=== PATIENT | male | born 1995 | race Caucasian/White ===

== ENCOUNTER 2018-08-06 00:34 | Emergency (ER) | payer OTHER ==
[2018-08-06 00:49] VITALS: BP 131/90; PULSE 109; RESP 16; TEMP 98
--- NOTE | 2018-08-06 01:08 | ED ---
Psych HPI - General Chief Complaint: Psychiatric Symptoms Stated Complaint: EPS Eval Time Seen by Provider: 08/06/18 00:47 Source: patient, police, RN notes reviewed, old records reviewed Mode of arrival: ambulatory - History of Present Illness Initial Comments: This is a 23-year-old male the ER for EPS and psychiatric evaluation. Patient has positive alcohol abuse disorder. Patient is positive intoxicated currently. Patient is also depressed and wants to commit suicide MD Complaint: suicidal ideation, feels depressed -: unknown Associated Psychiatric Symptoms: depression, suicidal ideation History of same: Yes Quality: getting worse Worsens With: alcohol Context: recent alcohol abuse Associated Symptoms: denies other symptoms Treatments Prior to Arrival: placed on mental health hold If Self Harm: admits thoughts of self harm - Related Data Allergies Allergy/AdvReac Type Severity Reaction Status Date / Time No Known Allergies Allergy Verified 08/06/18 00:49 Review of Systems ROS Statement: Those systems with pertinent positive or pertinent negative responses have been documented in the HPI. ROS Other: All systems not noted in ROS Statement are negative. Past Medical History Past Medical History: No Reported History History of Any Multi-Drug Resistant Organisms: None Reported Past Surgical History: No Surgical Hx Reported Past Psychological History: No Psychological Hx Reported Smoking Status: Light tobacco smoker Past Alcohol Use History: Occasional Past Drug Use History: Marijuana General Exam Limitations: no limitations General appearance: appears intoxicated Head exam: Present: atraumatic, normocephalic, normal inspection Eye exam: Present: normal appearance, PERRL, EOMI. Absent: scleral icterus, conjunctival injection, periorbital swelling ENT exam: Present: normal exam, mucous membranes moist Neck exam: Present: normal inspection. Absent: tenderness, meningismus, lymphadenopathy Respiratory exam: Present: normal lung sounds bilaterally. Absent: respiratory distress, wheezes, rales, rhonchi, stridor Cardiovascular Exam: Present: regular rate, normal rhythm, normal heart sounds. Absent: systolic murmur, diastolic murmur, rubs, gallop, clicks GI/Abdominal exam: Present: soft, normal bowel sounds. Absent: distended, tenderness, guarding, rebound, rigid Extremities exam: Present: normal inspection, full ROM, normal capillary refill. Absent: tenderness, pedal edema, joint swelling, calf tenderness Back exam: Present: normal inspection Neurological exam: Present: alert, oriented X3, CN II-XII intact Psychiatric exam: Present: normal affect, normal mood Skin exam: Present: warm, dry, intact, normal color. Absent: rash Course Vital Signs 08/06/18 00:45 Temperature 98.0 F Pulse Rate 109 H Respiratory 16 Rate Blood Pressure 131/90 O2 Sat by Pulse 96 Oximetry Medical Decision Making - Medical Decision Making 23 male the ER for evaluation. Patient seen evaluated with psychiatry intake, now cyanosis, not deemed necessary for psychiatric treatment. Patient can be discharged home - Lab Data Lab Results 08/06/18 Range/Units 01:50 Urine Opiates Screen Not Detected (NotDetected) Ur Oxycodone Screen Not Detected (NotDetected) Urine Methadone Screen Not Detected (NotDetected) Ur Propoxyphene Screen Not Detected (NotDetected) Ur Barbiturates Screen Not Detected (NotDetected) U Tricyclic Antidepress Not Detected (NotDetected) Ur Phencyclidine Scrn Not Detected (NotDetected) Ur Amphetamines Screen Not Detected (NotDetected) U Methamphetamines Scrn Not Detected (NotDetected) U Benzodiazepines Scrn Not Detected (NotDetected) Urine Cocaine Screen Not Detected (NotDetected) U Marijuana (THC) Screen Detected H (NotDetected) Disposition Clinical Impression: Alcohol intoxication Disposition: HOME SELF-CARE Condition: Good Instructions (If sedation given, give patient instructions): Alcohol Intoxication (ED) Is patient prescribed a controlled substance at d/c from ED?: No Referrals: None,Stated [Primary Care Provider] - 1-2 days
[2018-08-06 02:11] LABS: Amphetamine Screen,Urine Not Detected (NotDetected); Barbiturate Screen,Urine Not Detected (NotDetected); Benzodiazepines Screen,Urine Not Detected (NotDetected); Cocaine Screen,Urine Not Detected (NotDetected); Methadone Screen, Urine Not Detected (NotDetected); Opiate Screen,Urine Not Detected (NotDetected); Oxycodone Screen, Urine Not Detected (NotDetected); Phencyclidine Screen,Urine Not Detected (NotDetected); Tricyclic Antidepressant,Urine Not Detected (NotDetected); Urn Cannabinoid Scrn Detected (NotDetected)
== END 2018-08-06 03:20 | disposition home or self-care (01) ==
LOC: EC 00:34
DX: F10.129 Alcohol abuse with intoxication, unspecified (principal); F32.9 Major depressive disorder, single episode, unspecified; R45.851 Suicidal ideations; F17.200 Nicotine dependence, unspecified, uncomplicated
CPT/HCPCS: 80306; 99284

== ENCOUNTER 2019-05-18 07:57 | Inpatient (IN) | payer BC, OTHER ==
--- NOTE | 2019-05-18 08:29 | ED ---
Psych HPI - General Chief Complaint: Psychiatric Symptoms Stated Complaint: Mental Health Time Seen by Provider: 05/18/19 08:12 Source: patient, RN notes reviewed Mode of arrival: ambulatory Limitations: no limitations - History of Present Illness Initial Comments: This a 24-year-old male presents emergency department for psychiatric evaluation. Patient states he's been having increasing depression intermittent suicidal thoughts. Patient states that he does see a therapist every Sunday. Patient states that they're not helping. He was on Lexapro started on February 17 states he discontinued it because he gained a lot of weight. Patient has no physical complaints does admit to marijuana use no other drug use denies alcohol abuse history. Patient offers no other complaints denies homicidal ideation. - Related Data Home Medications Medication Instructions Recorded Confirmed Escitalopram [Lexapro] 10 mg PO DAILY 05/18/19 05/18/19 Allergies Allergy/AdvReac Type Severity Reaction Status Date / Time No Known Allergies Allergy Verified 05/18/19 10:32 Review of Systems ROS Statement: Those systems with pertinent positive or pertinent negative responses have been documented in the HPI. ROS Other: All systems not noted in ROS Statement are negative. Past Medical History Past Medical History: No Reported History History of Any Multi-Drug Resistant Organisms: None Reported Past Surgical History: No Surgical Hx Reported Past Psychological History: No Psychological Hx Reported Smoking Status: Former smoker Past Alcohol Use History: Daily Past Drug Use History: Marijuana General Exam Limitations: no limitations General appearance: alert, in no apparent distress Head exam: Present: atraumatic, normocephalic, normal inspection Eye exam: Present: normal appearance, PERRL, EOMI. Absent: scleral icterus, conjunctival injection, periorbital swelling ENT exam: Present: normal exam, normal oropharynx, mucous membranes moist Neck exam: Present: normal inspection, full ROM. Absent: tenderness, meningismus, lymphadenopathy Respiratory exam: Present: normal lung sounds bilaterally. Absent: respiratory distress, wheezes, rales, rhonchi, stridor Cardiovascular Exam: Present: regular rate, normal rhythm, normal heart sounds. Absent: systolic murmur, diastolic murmur, rubs, gallop, clicks GI/Abdominal exam: Present: soft, normal bowel sounds. Absent: distended, te nderness, guarding, rebound, rigid Neurological exam: Present: alert, oriented X3 Psychiatric exam: Present: depressed Skin exam: Present: warm, dry, intact, normal color. Absent: rash Course Vital Signs 05/18/19 08:07 Temperature 97.8 F Pulse Rate 86 Respiratory 18 Rate Blood Pressure 119/64 O2 Sat by Pulse 99 Oximetry Medical Decision Making - Medical Decision Making Patient was evaluated by EPS case discussed with psychiatrist recommends inpatient treatment. - Lab Data Lab Results 05/18/19 Range/Units 08:20 Urine Opiates Screen Not Detected (NotDetected) Ur Oxycodone Screen Not Detected (NotDetected) Urine Methadone Screen Not Detected (NotDetected) Ur Propoxyphene Screen Not Detected (NotDetected) Ur Barbiturates Screen Not Detected (NotDetected) U Tricyclic Antidepress Not Detected (NotDetected) Ur Phencyclidine Scrn Not Detected (NotDetected) Ur Amphetamines Screen Not Detected (NotDetected) U Methamphetamines Scrn Not Detected (NotDetected) U Benzodiazepines Scrn Not Detected (NotDetected) Urine Cocaine Screen Not Detected (NotDetected) U Marijuana (THC) Screen Detected H (NotDetected) Disposition Clinical Impression: Depression, Suicidal ideation Disposition: TRANSFER TO PSYCH HOSP/UNIT Condition: Stable
[2019-05-18 08:49] LABS: Amphetamine Screen,Urine Not Detected (NotDetected); Barbiturate Screen,Urine Not Detected (NotDetected); Benzodiazepines Screen,Urine Not Detected (NotDetected); Cocaine Screen,Urine Not Detected (NotDetected); Methadone Screen, Urine Not Detected (NotDetected); Opiate Screen,Urine Not Detected (NotDetected); Oxycodone Screen, Urine Not Detected (NotDetected); Phencyclidine Screen,Urine Not Detected (NotDetected); Tricyclic Antidepressant,Urine Not Detected (NotDetected); Urn Cannabinoid Scrn Detected (NotDetected)
[2019-05-18] MEDS ORDERED: MAGNESIUM HYDROXIDE 2,400 MG/10 ML CUP PO PRN (10:34)
[2019-05-18] MEDS ORDERED: ACETAMINOPHEN TAB 325 MG TAB PO PRN (10:34)
[2019-05-18] MEDS ORDERED: MAG HYDROX/AL HYDROX/SIMETH 30 ML CUP PO PRN (10:34)
[2019-05-18] MEDS ORDERED: ZIPRASIDONE 20 MG VIAL IM PRN (10:34)
[2019-05-18] MEDS ORDERED: hydrOXYzine PAMOATE 25 MG CAP PO PRN (10:36)
--- NOTE | 2019-05-18 14:39 | P.HP ---
Psychiatric H&P - . H&P Date: 05/18/19 History & Physical: IDENTIFYING Data: Fracisco Marks is a 24-year-old single male who currently is homeless, working in construction, has psychiatric history of depression and PTSD, and reports not medical problems. The patient has been admitted to our inpatient psychiatric services after been transferred from [facility] ED. Patient was initially self-referred because of depression and SI. The patient has been admitted on voluntary basis to our service. CHIEF COMPLAINT: "Depression, and SI" HISTORY OF PRESENT ILLNESS: As per ED note: " This a 24-year-old male presents emergency department for psychiatric evaluation. Patient states he's been having increasing depression intermittent suicidal thoughts. Patient states that he does see a therapist every Sunday. Patient states that they're not helping. He was on Lexapro started on February 17 states he discontinued it because he gained a lot of weight. Patient has no physical complaints does admit to marijuana use no other drug use denies alcohol abuse history. Patient offers no other complaints denies homicidal ideation." Patient was evaluated today, he reports worsening of depression for past 6 months and for last week he has constant thoughts of killing himself. He was thinking about going to the beach and shot himself but he decided to come to the hospital. Patient reports is still has access to his guns when he leaves, but he refused to disclose where his guns "my guns are at [facility] and the person who has been keeping them safe". Patient reports history of depression and is started when he was teenager and at that time he started taking Zoloft. He reports previous episodes of depression but denies any history of suicidal attempts. Patient reports for the last 6 months has been feeling depressed with symptoms of depressed mood for most of the time, lack of motivation, very poor energy level, sleep and appetite disturbances that he had trouble sleeping and wakes up frequently and his appetite fluctuates from eating too much or not to eat. He reports times of feeling hopeless and suicidal ideation. He reports severe mood swings was times feeling very angry at himself that he could hit his head or punching armendariz because of his depression and not feeling any better. Patient denies any history of agustin including euphoric mood, lack need to sleep due to unusual increased activities, or irrational/impulsive behavior. But he reports symptoms of severe mood swings with outbursts of agitation and anger and usually his anger toward himself. Denies any history of psychosis including auditory/visual hallucinations, paranoid ideation, and no delusions could be elicited. Patient reports feeling severe anxiety for most of his life that he always worried was racing thoughts. He reports symptoms of sweating, tremors, and heart racing related to his anxiety. Reports history of panic attacks but denies any recent ones. Even he reported being diagnosed with PTSD according to his therapist, but he denies symptoms of flashbacks, or nightmares. He reports his trauma related to being abandoned by his mother at very young age. Patient was prescribed Lexapro recently by his PCP and he continued to take it for more than 2 month but he didn't feel any help and he reports gaining weight as a side effect. Patient denies any history of self injurious behavior, and he denies any previous suicidal attempts. PAST PSYCHIATRIC HISTORY: Previous diagnoses: Depression, PTSD as per patient report Previous psychiatric hospitalizations: Denies. Previous suicide attempts: Denies. Previous outpatient psychiatric treatment: Therapy at [facility] once week. He was prescribed Lexapro by his PCP last February but he stopped taking it 2 weeks ago. Reports was seen by psychiatric long time ago to evaluate him for substance use problems which was court mandated. Current psychiatric medications: Not taking any medications for last 2 weeks. Previous medication trials: Lexapro started last February. Reports prior trial of Zoloft when he was 16. SUBSTANCE ABUSE HISTORY: Nicotine: using e-cigarette every day. Alcohol: Regularly drinks 1-2 drinks weekly, but for last week was drinking heavily every day because of severe depression. Last time has alcohol drink was Sunday Night. Denies any use of cocaine, methamphetamine or opiate but reports recreational use of acids with his friends "may be once / 6 months" Denies any IVDU. Never had any [place]. Reports smoking marijuana daily. Social History: Patient was born in [place] and raised up by grandparents. He was taken away from his mother at very young age when he was infant and probably he was back to his mother when he was 3. Housing: Currently is homeless. The patient is never . Work history: Works in construction. Education: Patient reports attaining an educational level of 10th grade. Children: Patient reports having no children. History of psychological trauma: Reports issues with abandonment that he was taken away from his mother at very young age FAMILY HISTORY: Psychiatric Illness: Denies. Substance abuse: Alcoholism at his father side of the family including his father. Completed Suicides: Denies . Medical History: Denies MENTAL STATUS EVALUATION: Appearance: Appears stated age, fairly groomed, average body built, and no specific features. Gait/ posture: Steady gait, normal arm swinging, no abnormal movements, with relaxed posture. Attitude and Behavior: no fully engaged, superficially cooperative, intermittent eye contact during course of interview. Motor Activity: normal psychomotor activity. Speech: spontaneous, normal rate, rhythm, and articulation. normal volume. not pressured. Language: Articulating, naming objects and repeat phrases. Mood: Depressed Affect: Restricede. Thought process: Goal-directed. Association: Intact. Thought content: Denies delusions, Reports suicidal thoughts, Denies homicidal thoughts. Reports intention and plan to end his life by shooting himself Perception: Denies hallucinations Alertness: No impairment. Concentration: Impaired Orientation: Oriented to time, place, person, and situation Insight regarding psychiatric condition: Fair Judgment regarding daily activities and social situation: Fair Impulse control: limited Strengths: Good general medical condition. Financial stability Challenges: Poor coping skills Limited access to treatment Allergies Allergy/AdvReac Type Severity Reaction Status Date / Time No Known Allergies Allergy Verified 05/18/19 11:50 Vital Signs Temp 97.5 F L 05/18/19 11:04 Pulse 73 05/18/19 11:04 Resp 20 05/18/19 11:04 BP 103/44 05/18/19 11:04 Pulse Ox 98 05/18/19 11:04 Intake & Output 05/17/19 05/18/19 05/18/19 17:59 06:59 18:59 Weight 67.5 kg Review of Lab results: Laboratory Last Values Urine Opiates Screen Not Detected (NotDetected) 05/18/19 08:20 Ur Oxycodone Screen Not Detected (NotDetected) 05/18/19 08:20 Urine Methadone Screen Not Detected (NotDetected) 05/18/19 08:20 Ur Propoxyphene Screen Not Detected (NotDetected) 05/18/19 08:20 Ur Barbiturates Screen Not Detected (NotDetected) 05/18/19 08:20 U Tricyclic Antidepress Not Detected (NotDetected) 05/18/19 08:20 Ur Phencyclidine Scrn Not Detected (NotDetected) 05/18/19 08:20 Ur Amphetamines Screen Not Detected (NotDetected) 05/18/19 08:20 U Methamphetamines Scrn Not Detected (NotDetected) 05/18/19 08:20 U Benzodiazepines Scrn Not Detected (NotDetected) 05/18/19 08:20 Urine Cocaine Screen Not Detected (NotDetected) 05/18/19 08:20 U Marijuana (THC) Screen Detected (NotDetected) H 05/18/19 08:20 Assessment: Major depressive disorder, recurrent with anxious distress Rule out Generalized anxiety disorder Cannabis use disorder, moderate Rule out PTSD TREATMENT PLAN/RECOMMENDATIONS: Medical Decision making: The patient presented with suicidal ideation, intent and plan. The patient at high risk to hurt himself if he is not in the inpatient setting. The patient's psychiatric symptoms are not stable and he needs further management of psychiatric medications and further planning for discharge. Therefore, inpatient level of care is needed. Continue the patient inpatient for safety. Continue the patient under 15 minutes safe check for safety. Psych education regarding his diagnosis, and treatment option. The patient will also be provided with individual therapy, group therapy, substance abuse counseling, gain insight, and coping skills. Consider medical consultation if any acute medical issue arise. Medications: Start Effexor XR 37.5 mg daily for depression and anxiety Start Abilify 2 mg daily for mood stabilization Start Remeron 7.5 mg daily for insomnia and depression The patient will be assessed on daily basis, and will be discharged back to his outpatient mental health provider upon stabilization. EXPECTED LENGTH OF STAY: 5-7 days.
[2019-05-18] MEDS ORDERED: VENLAFAXINE HCL 37.5 MG TAB PO SCH (14:45)
[2019-05-18] MEDS: VENLAFAXINE HCL ER 37.5 MG CAP PO SCH (15:22)
[2019-05-18] MEDS: ARIPiprazole 2 MG TAB PO SCH (15:22)
[2019-05-18] MEDS: NICOTINE 21MG/24HR PATCH TRANSDERM SCH (15:32)
--- NOTE | 2019-05-18 19:57 | P.CONS ---
History of Present Illness - Reason for Consult Consult date: 05/18/19 Medical management Requesting physician: Sandeep Maier - Chief Complaint Depressed, suicidal - History of Present Illness Consultation: This is a pleasant 24-year-old patient of Dr. Maier. Patient been followed by an outside psychologist has been started on Lexapro. Because of 18 patient having trouble taking the same. Patient progressively is becoming more depressed societal and decided to come in. Admitted to the psychiatry unit for the same on 3 W. Patient is having reflux symptoms sleep is poor. Very interrupted appetite is adequate to good a very poor frustrating all the time. Patient does use marijuana about twice a day for not stool weeks and drinking somewhat heavy alcohol. Patient stopped smoking cigarettes but does vape Review of systems: GEN.: Poor sleep fluctuating appetite EYES: None HEENT: None NECK: None RESPIRATORY: None CARDIOVASCULAR: None GASTROINTESTINAL: Heartburn GENITOURINARY: None MUSCULOSKELETAL: None LYMPHATICS: None HEMATOLOGICAL: None PSYCHIATRY: [Depressed societal NEUROLOGICAL: None Past medical history to include: GERD, anxiety depression Social history: Lives with his grandfather. Does marijuana about twice a day. Has been drinking heavy alcohol for 2 weeks. He is to smoke cigarettes. No switched over to vaping Family history: Reviewed, noncontributory to presentation Physical examination: VITAL SIGNS: 97.8, 86, 18, 119/64, 99% on room air GENERAL: BMI 24, sitting upon a chair, awake. EYES: Pupils equal. Conjunctiva normal. HEENT: External appearance of nose and ears normal, oral cavity grossly normal. NECK: JVD not raised; masses not palpable. HEART: First and second heart sounds are normal; no edema. LUNGS: Respiratory rate normal; clear to auscultation. ABDOMEN: Soft, nontender, liver spleen not palpable, no masses palpable. PSYCH: [Alert and oriented x3; mood and affect a bit low. NEUROLOGICAL: Cranial nerves grossly intact; no facial asymmetry, power and sensation grossly intact. LYMPHATICS: No lymph nodes palpable in the axilla and neck INVESTIGATIONS, reviewed in the clinical context: Urine drug screen positive for marijuana Assessment: -Recreational marijuana use -Recreational electronics cigarettes with vaping -Acute alcohol intake in the last 2 weeks -Major depressive disorder recurrent with anxious disorder -Poor sleep hygiene from underlying psychiatric disorder Plan: Patient was counseled was several aspects of time in life management. Advised against use of vaping and marijuana. Also counseled against use of alcohol. Patient has been started on Abilify, Effexor and Remeron per psychiatry. Thank you Dr. Odonnell Past Medical History Past Medical History: GERD/Reflux History of Any Multi-Drug Resistant Organisms: None Reported Past Surgical History: No Surgical Hx Reported Past Anesthesia/Blood Transfusion Reactions: No Reported Reaction Past Psychological History: Anxiety, Depression, PTSD Smoking Status: Former smoker Past Alcohol Use History: Daily Past Drug Use History: Marijuana Medications and Allergies Home Medications Medication Instructions Recorded Confirmed Type Escitalopram [Lexapro] 10 mg PO DAILY 05/18/19 05/18/19 History Allergies Allergy/AdvReac Type Severity Reaction Status Date / Time No Known Allergies Allergy Verified 05/18/19 11:50 Physical Exam Vitals: Vital Signs Temp Pulse Pulse Resp BP BP Pulse Ox 05/18/19 11:04 97.5 F L 73 20 103/44 98 05/18/19 08:07 97.8 F 86 18 119/64 99 Intake and Output 05/17/19 05/18/19 05/18/19 21:59 06:59 14:59 Other: Weight 67.5 kg Results Labs: Abnormal Lab Results - Last 24 Hours (Table) 05/18/19 Range/Units 08:20 U Marijuana (THC) Screen Detected H (NotDetected)
[2019-05-19] MEDS ORDERED: NICOTINE 21MG/24HR PATCH TRANSDERM SCH (09:00)
[2019-05-19] MEDS: ARIPiprazole 2 MG TAB PO SCH (09:42)
[2019-05-19] MEDS: NICOTINE 21MG/24HR PATCH TRANSDERM SCH (09:42)
[2019-05-19] MEDS: VENLAFAXINE HCL ER 37.5 MG CAP PO SCH (09:42)
[2019-05-19 10:38] LABS: Basophils # (A) 0.1 k/uL (0-0.2); Basophils % (A) 1 %; Eosinophils # (A) 0.2 k/uL (0-0.7); Eosinophils % (A) 2 %; HCT 51.5 % (39.0-53.0); HGB 17.3 gm/dL (13.0-17.5); Lymphocytes # (A) 2.7 k/uL (1.0-4.8); Lymphocytes % (A) 31 %; MCH 29.8 pg (25.0-35.0); MCHC 33.6 g/dL (31.0-37.0); MCV 88.6 fL (80.0-100.0); Mean Platelet Volume 7.6; Monocytes # (A) 0.4 k/uL (0-1.0); Monocytes % (A) 5 %; Neutrophils # (A) 5.1 k/uL (1.3-7.7); Neutrophils % (A) 59 %; Platelet Count 311 k/uL (150-450); RBC 5.82 m/uL (4.30-5.90); RDW 11.7 % (11.5-15.5); WBC 8.6 k/uL (3.8-10.6)
[2019-05-19 10:42] LABS: ALT 29 U/L (4-49); AST 30 U/L (17-59); African American GFR (CKD) >90 (>60 ml/min/1.73 sqM); Alkaline Phosphatase 75 U/L (38-126); Anion Gap 8 mmol/L; Blood Urea Nitrogen 10 mg/dL (9-20); Calcium 10.2 mg/dL (8.4-10.2); Carbon Dioxide 32 mmol/L (22-30); Chloride 98 mmol/L (98-107); Glucose 89 mg/dL (74-99); Non-African American GFR(CKD) >90 (>60 ml/min/1.73 sqM); Potassium 4.4 mmol/L (3.5-5.1); Sodium 138 mmol/L (137-145); Total Bilirubin 0.7 mg/dL (0.2-1.3)
--- NOTE | 2019-05-19 14:38 | P.PN ---
Subjective Progress Note Date: 05/19/19 Principal diagnosis: Major depressive disorder recurrent with anxious distress, cannabis use disorder, relationship problems I reviewed the medical history, interviewed the patient and discuss his treatment and treatment plan during team meeting. He presented to the psychiatric unit voluntarily with complaints of depression and suicidal ideation. He described a history of depression beginning in adolescence that has fluctuates in intensity. His become more depressed recently following the breakup of a long-term relationship. He described thoughts of suicide and and plans. [facility] at the behest of his mother and therapist. He denied a history of suicide attempts or gestures. During our interview he perseverated on the relationship with his girlfriend. He is concerned that they will be unable to reconcile after their last argument where he admitted to look into her phone without her permission. He noticed a decrease in his overall distress and suicidal ideation since he started the Effexor and Abilify. He denied side effects to medication. He requested to be discharged so that he continue with outpatient treatment. Objective - Vital Signs Vital signs: Vital Signs Temp 97.9 F 05/19/19 06:43 Pulse 73 05/19/19 06:43 Resp 14 05/19/19 06:43 BP 103/64 05/19/19 06:43 Pulse Ox 98 05/18/19 11:04 Intake & Output 05/18/19 05/19/19 05/19/19 18:59 06:59 18:59 Weight 67.5 kg - Exam He was casually groomed, pleasant and cooperative. He made eye contact and attend to interview. He had a calm facial expression. He showed no abnormality of psychomotor activity. His speech was spontaneous with normal rate, rhythm and volume. His affect was depressed but reactive. He denied suicidal ideation or wishes. He ruminated about his relationship with his girlfriend and their arguments. He did not express ideas reference, paranoid ideation or delusions. His thinking was concrete but his associations were coherent and logical. He denied hallucinations did not appear to be responding to internal stimuli. - Labs CBC & Chem 7: 05/19/19 09:43 05/19/19 09:43 Labs: Abnormal Lab Results - Last 24 Hours (Table) 05/19/19 Range/Units 09:43 Carbon Dioxide 32 H (22-30) mmol/L Assessment and Plan Assessment: He describes a decrease distress, depression and thoughts of suicide since admission. Plan: Continue Effexor XR 37.5 mg and titrated clinical response and tolerance. Continue Abilify 2 mg daily and titrated according to clinical response and tolerance. Continue Remeron 7.5 milligrams at bedtime when necessary for sleep. Encourage continued participation in therapeutic groups and activities. Evaluate clinical status response to treatment daily basis.
[2019-05-19] MEDS: MIRTAZAPINE 15 MG TAB PO PRN (22:17)
[2019-05-20 06:45] VITALS: RESP 16
[2019-05-20] MEDS: VENLAFAXINE HCL ER 37.5 MG CAP PO SCH (08:10)
[2019-05-20] MEDS: ARIPiprazole 2 MG TAB PO SCH (08:10)
[2019-05-20] MEDS: NICOTINE 21MG/24HR PATCH TRANSDERM SCH (08:10)
--- NOTE | 2019-05-20 14:55 | P.PN ---
Subjective Progress Note Date: 05/20/19 Principal diagnosis: Major depressive disorder recurrent with anxious distress, cannabis use disorder, relationship problems I reviewed the medical history, interviewed the patient and discuss his treatment and treatment plan during team meeting. He denied problems or concerns. He denied feeling depressed or having suicidal ideation since admission to the unit. He denied side effects to his current medications Abilify, Vistaril and Effexor XR. He requested discharge because he "needs" to get back to work. He plans to live with his grandfather until he finds some apartment. He did not perseverate about his ex-girlfriend. He is interested in meeting with the psychiatrist as an outpatient. Objective - Vital Signs Vital signs: Vital Signs Temp 98.3 F 05/20/19 06:44 Pulse 54 L 05/20/19 06:44 Resp 16 05/20/19 06:44 BP 105/58 05/20/19 06:44 Pulse Ox 97 05/20/19 06:44 - Exam He was casually groomed, pleasant and cooperative. He made eye contact and attended the interview. He was not restless, agitated or showed psychomotor retardation. Speech was spontaneous with normal rate, rhythm and volume. His affect was bright, stable and appropriate. He denies suicidal ideation or wishes. He denied homicidal ideation. He denied feeling hopeless, helpless or worthless. He did not express ideas of reference, paranoid ideation or delusi onal thoughts. He denied hallucinations did not appear to be responding to internal stimuli. - Labs CBC & Chem 7: 05/19/19 09:43 05/19/19 09:43 Assessment and Plan Assessment: He appears much improved than on admission. He is denying suicidal ideation, anxiety or depressive symptoms. Plan: tail board worker to speak with his mother about removing guns from the home and coordinate discharge and aftercare services. Continue current medications- Abilify 2 mg daily, Effexor XR stated he said 0.5 mg daily, Remeron 7.5 mg at bedtime and Vistaril 50 mg by mouth every 8 hours when necessary for anxiety. Plan for discharge on 05/21/2019 after family meeting.
[2019-05-20] MEDS: MIRTAZAPINE 15 MG TAB PO PRN (20:44)
[2019-05-21 06:47] VITALS: BP 99/61; PULSE 55; TEMP 97.4
[2019-05-21] MEDS: NICOTINE 21MG/24HR PATCH TRANSDERM SCH (08:30)
[2019-05-21] MEDS: VENLAFAXINE HCL ER 37.5 MG CAP PO SCH (08:31)
[2019-05-21] MEDS: ARIPiprazole 2 MG TAB PO SCH (08:31)
--- NOTE | 2019-05-21 14:55 | P.DS ---
Providers Date of admission: 05/18/19 10:25 Attending physician: Quinn Odonnell MD Consults: 05/18/19 10:34 Consult Physician Routine Consulting Provider: Rodger Sinclair Consult Reason/Comments: H and P Do you want consulting provider notified?: Yes Primary care physician: Sandeep Yec - Discharge Diagnosis(es) (1) Suicidal ideation Status: Resolved Priority: Low (2) Depression Status: Chronic Priority: Medium (3) Cannabis use disorder, mild, abuse Status: Chronic Priority: Medium (4) Tobacco use He is not interested in smoking cessation. He declined a prescription for nicotine replacement therapy. Brief intervention provided Status: Chronic Priority: Medium Hospital Course: He is a 23-year-old single male who presented to the psychiatric unit voluntarily with complaints of depression and suicidal ideation. He described increasing depression and increasing suicidal thoughts since the breakup of a long-term relationship. During a recent meeting His therapist recommended inpatient treatment due to the increasing suicidal ideation. He described thoughts of shooting himself. He had access to a gun and initially refused to disclose the location of a firearm. He is been treated for depression by her therapist at [facility] who provides outpatient services on a sliding scale. He was prescribed Lexapro by his PCP last February he stopped taking the medication 2 weeks ago. He usually drinks 1-2 drinks per week but was drinking "heavily" to week prior to admission. He denied use of cocaine, methamphetamine or opiates in his UDS was POSITIVE FOR MARIJUANA. Admitted him to the psychiatric unit on the care of this magazine writer. Provided a company said biopsychosocial assessment. The business development consultant extras casting director diagnosed medical use, nicotine use and increase alcohol use. He business development consultant recommended nicotine replacement therapy. We treated his depressive symptoms with combination of Effexor XR 37.5 mg daily and Abilify 2 mg daily. We also prescribed Remeron simplify milligrams at bedtime when necessary for sleep. He had no alcohol withdrawal symptoms. He participated in therapeutic groups and activities. He posed no management problem had no episodes. Dyscontrol. His depression improved and the suicidal thoughts remitted during his present hospitalization. He disclosed that as far homicide his grandfather's house. The social sciences research scientist obtained permission, spoke with grandfather who has since secured firearm. switchboard wire worker helper assisted him with this screening to community mental health and he most likely be referred to [facility] for outpatient mental health services. At time of discharge she presented as a casually groomed and neatly dressed young male who was pleasant on approach. He made eye contact and attended the interview. He had no distinction features are prominent physical modalities. He had a bright facial expression. He is alert oriented to person, place and time. He showed no abnormality of psychomotor activity. Her speech was spontaneous with normal rate, rhythm and volume. His affect was blunted but stable and appropriate. He denied suicidal ideation, wishes or homicidal ideation. He denied feeling hopeless, helpless or worthless. He did not express ideas reference, paranoid ideation or delusional thoughts. His thinking was abstract and associations were coherent, logical and goal directed. He denied hallucinations did not appear to be responding to internal stimuli. Patient Condition at Discharge: Stable Plan - Discharge Summary Discharge Rx Participant: No New Discharge Prescriptions: New ARIPiprazole [Abilify] 2 mg PO DAILY #30 tab Venlafaxine HCl ER [Effexor XR] 37.5 mg PO DAILY #30 cap.er.24h Mirtazapine [Remeron] 7.5 mg PO HS PRN #14 tab PRN Reason: Insomnia Discontinued Escitalopram [Lexapro] 10 mg PO DAILY Discharge Medication List ARIPiprazole [Abilify] 2 mg PO DAILY #30 tab 05/21/19 [Rx] Mirtazapine [Remeron] 7.5 mg PO HS PRN #14 tab 05/21/19 [Rx] Venlafaxine HCl ER [Effexor XR] 37.5 mg PO DAILY #30 cap.er.24h 05/21/19 [Rx] Follow up Appointment(s)/Referral(s): [facility] [Outside] - 05/26/19 3:30 pm (Jsoe Teixeira ) Sandeep Maier MD [Primary Care Provider] - 1-2 days Patient Instructions/Handouts: How to Stop Smoking (DC), Depression (DC), Post Traumatic Stress Disorder (DC) Activity/Diet/Wound Care/Special Instructions: Activity and diet as tolerated. Avoid the use of street drugs and alcohol. Take all medications as prescribed. When you are in need of refills on your medications please contact your medical provider and/or outpatient psychiatrist to have this done. Please go to scheduled outpatient appointment for aftercare treatment. If symptoms return or become worse, call the crisis line at and/or go to the nearest emergency room for evaluation. Remove all firearms from home. Discharge Disposition: HOME SELF-CARE
== END 2019-05-21 09:40 | disposition home or self-care (01) | DRG 885 ==
LOC: EC 07:57 → 3MHU 10:25
PROVIDERS: ADMIT Psychiatry & Neurology Psychiatry; ATTEND Psychiatry & Neurology Psychiatry
DX: F33.9 Major depressive disorder, recurrent, unspecified (principal); R45.851 Suicidal ideations; F12.10 Cannabis abuse, uncomplicated; F43.10 Post-traumatic stress disorder, unspecified; K21.9 Gastro-esophageal reflux disease without esophagitis; F41.9 Anxiety disorder, unspecified; F17.290 Nicotine dependence, other tobacco product, uncomplicated; Z79.899 Other long term (current) drug therapy; Z59.0 Homelessness
CPT/HCPCS: 80053; 80306; 82075; 84443; 85025; 99285

== ENCOUNTER 2021-02-23 13:16 | Emergency (ER) | payer OTHER, BC ==
[2021-02-23 13:21] VITALS: BP 131/85; PULSE 78; RESP 20; TEMP 98.2
[2021-02-23] MEDS ORDERED: ORPHENADRINE 30 MG/ML 2 ML VIAL IM STA (13:30)
--- NOTE | 2021-02-23 14:28 | XR ---
Cervical spine HISTORY: Pain, trauma 2 days prior 5 views of the cervical spine Cervical vertebral bodies show preserved height, alignment, and bone mineralization. Disc spaces and prevertebral soft tissues are normal. No evident foraminal encroachment on oblique views. Lung apices are normal. IMPRESSION: Normal cervical spine. No fracture or subluxation is evident.
--- NOTE | 2021-02-23 14:36 | ED ---
Neck Injury/Pain HPI - General Chief Complaint: Neck Pain/Injury Stated Complaint: [facility]-neck injury Time Seen by Provider: 02/23/21 13:27 Source: patient, RN notes reviewed Mode of arrival: ambulatory Limitations: no limitations - History of Present Illness Initial Comments: Patient is a 26-year-old male that presents to the emergency department complain ing of neck pain. He notes he was loading a truck with some form yesterday when one fell on top of his head hurting his back. He notes that he went home last night rested thinking that would be better. He notes he went today and his neck was tight. He notes that he has decreased range of motion looking side to side secondary to pain. Patient was otherwise well-appearing. He notes he has full range of motion strength in all extremities. He denied any numbness tingling weakness anywhere. He denied chest pain shortness breath headache nausea vomiting diarrhea constipation fever fatigue chills. - Related Data Previous Rx's Medication Instructions Recorded ARIPiprazole [Abilify] 2 mg PO DAILY #30 tab 05/21/19 Mirtazapine [Remeron] 7.5 mg PO HS PRN #14 tab 05/21/19 Venlafaxine HCl ER [Effexor XR] 37.5 mg PO DAILY #30 cap.er.24h 05/21/19 Allergies Allergy/AdvReac Type Severity Reaction Status Date / Time No Known Allergies Allergy Verified 02/23/21 13:18 Review of Systems ROS Statement: Those systems with pertinent positive or pertinent negative responses have been documented in the HPI. ROS Other: All systems not noted in ROS Statement are negative. Past Medical History Past Medical History: GERD/Reflux History of Any Multi-Drug Resistant Organisms: None Reported Past Surgical History: No Surgical Hx Reported Past Anesthesia/Blood Transfusion Reactions: No Reported Reaction Past Psychological History: Anxiety, Depression, PTSD Smoking Status: Vaper Past Alcohol Use History: None Reported Past Drug Use History: Marijuana General Exam Limitations: no limitations General appearance: alert, in no apparent distress Head exam: Present: atraumatic, normocephalic, normal inspection Eye exam: Present: normal appearance, PERRL, EOMI. Absent: scleral icterus, conjunctival injection, periorbital swelling ENT exam: Present: normal exam, mucous membranes moist Neck exam: Present: normal inspection Respiratory exam: Present: normal lung sounds bilaterally. Absent: respiratory distress, wheezes, rales, rhonchi, stridor Cardiovascular Exam: Present: regular rate, normal rhythm, normal heart sounds. Absent: systolic murmur, diastolic murmur, rubs, gallop, clicks GI/Abdominal exam: Present: soft, normal bowel sounds. Absent: distended, tenderness, guarding, rebound, rigid Extremities exam: Present: normal inspection, full ROM, normal capillary refill. Absent: tenderness, pedal edema, joint swelling, calf tenderness Neurological exam: Present: alert, oriented X3 Psychiatric exam: Present: normal affect, normal mood Course Vital Signs 02/23/21 13:18 Temperature 98.2 F Pulse Rate 78 Respiratory 20 Rate Blood Pressure 131/85 O2 Sat by Pulse 99 Oximetry Medical Decision Making - Medical Decision Making 18-year-old male complaining of neck pain. X-ray of cervical spine and 69 g and Norflex ordered. X-ray negative for any acute process. Patient most likely has a cervical neck strain. Case discussed with Dr. Padilla patient discharge home. - Radiology Data Radiology results: report reviewed, image reviewed X-ray the cervical spine: Normal cervical spine. No fracture or subluxation is evident. Disposition Clinical Impression: Strain of neck muscle Disposition: HOME SELF-CARE Condition: Stable Instructions (If sedation given, give patient instructions): Cervical Sprain (ED) Additional Instructions: Please return to the Emergency Department if symptoms worsen or any other concerns. Follow-up with primary care 1-2 days. Take Motrin as day for pain. Is patient prescribed a controlled substance at d/c from ED?: No Referrals: Artie Baum MD [Primary Care Provider] - 1-2 days Time of Disposition: 14:36
== END 2021-02-23 14:53 | disposition home or self-care (01) ==
LOC: EC 13:16
DX: S16.1XXA Strain of muscle, fascia and tendon at neck level, initial encounter (principal); K21.9 Gastro-esophageal reflux disease without esophagitis; F41.9 Anxiety disorder, unspecified; F32.A Depression, unspecified; F43.12 Post-traumatic stress disorder, chronic; F17.290 Nicotine dependence, other tobacco product, uncomplicated; F12.90 Cannabis use, unspecified, uncomplicated; X50.0XXA Overexertion from strenuous movement or load, initial encounter
CPT/HCPCS: 99283; 96372; 72050; J2360

== ENCOUNTER → 2021-02-24 | Outpatient (CLI) | payer BC, OTHER ==
--- NOTE | 2021-02-24 12:15 | CT ---
EXAMINATION TYPE: CT cervical spine wo con DATE OF EXAM: 02/24/2021 COMPARISON: X-ray 02/24/2020 HISTORY: Neck pain CT DLP: 728 mGycm Automated exposure control for dose reduction was used. TECHNIQUE: CT scan of the cervical spine is obtained without contrast, axial images are obtained, sa gittal and coronal reformatted images are also reviewed. FINDINGS: Cervical spine is visualized in its entirety from C1 through upper thoracic levels, demonst rates satisfactory alignment without evidence of acute fracture or dislocation. Prevertebral soft ti ssue appears within normal limits. The C1-C2 articulation is within normal limits on the coronal rey ges. Artifact the resolution Limited assessment of the spinal canal. If concern for disc herniation correlate with MRI IMPRESSION: There is no acute fracture or dislocation evident in the cervical spine. See above
== END | disposition home or self-care (01) ==
LOC: RADCTMAIN 11:30
PROVIDERS: ATTEND Emergency Medicine
DX: M54.2 Cervicalgia (principal)
CPT/HCPCS: 72125